=== PATIENT | female | born 1990 | race Hispanic/Latino ===

== ENCOUNTER 2018-01-30 16:45 | Emergency (ER) | payer SELFPAY ==
[~2018-01-30] VITALS: Ht 162.6 cm; Wt 61.4 kg
[2018-01-30 18:09] VITALS: BP 117/64
[2018-01-30] MEDS ORDERED: ULTRAM50 M1 PO (18:09)
[2018-01-30] MEDS ORDERED: AMOXICILLIN500 MG PO (18:09)
[2018-01-30] MEDS ORDERED: CLARITIN10 M1 PO (18:09)
== END 2018-01-30 18:15 | disposition home or self-care (01) | DRG 153 ==
LOC: ED 16:45
DX: J02.0 Streptococcal pharyngitis (principal)

== ENCOUNTER 2021-09-28 09:43 | Emergency (ER) | payer BC, MEDICAID ==
[~2021-09-28] VITALS: Ht 162.6 cm; Wt 72.7 kg
[~2021-09-28 09:43] MED LIST: AMOXICILLIN500 MG PO; CLARITIN10 M1 PO; ULTRAM50 M1 PO
[2021-09-28 09:54] VITALS: BP 103/75
[2021-09-28 10:00] VITALS: BP 107/80
[2021-09-28 10:30] VITALS: BP 103/71
[2021-09-28 11:00] VITALS: BP 119/75
[2021-09-28] MEDS ORDERED: KEFLEX500 MG PO (11:06)
[2021-09-28 11:11] VITALS: BP 119/75
== END 2021-09-28 11:18 | disposition home or self-care (01) | DRG 605 ==
LOC: ED 09:43
PROC: 0HQGXZZ Repair Left Hand Skin, External Approach (ICD-10-PCS; principal; 2021-09-28)
DX: S61.412A Laceration without foreign body of left hand, initial encounter (principal); W26.0XXA Contact with knife, initial encounter; Y93.89 Activity, other specified; Y92.009 Unspecified place in unspecified non-institutional (private) residence as the place of occurrence of the external cause

== ENCOUNTER 2022-03-10 01:06 | Emergency (ER) | payer BC, MEDICAID ==
[~2022-03-10] VITALS: Ht 162.6 cm; Wt 69.1 kg
[~2022-03-10 01:06] MED LIST changes: +KEFLEX500 MG PO
[2022-03-10 01:23] VITALS: BP 112/74
[2022-03-10] MEDS ORDERED: CLONAZEPAM1 MG PO (01:26)
[2022-03-10 01:42] VITALS: BP 113/69
[2022-03-10 01:47] LABS: URINE BILIRUBIN - DIPSTICK NEGATIVE (NEGATIVE); URINE BLOOD DIPSTICK NEGATIVE (NEGATIVE); URINE COLOR YELLOW; URINE GLUCOSE - DIPSTICK NEGATIVE (NEGATIVE); URINE KETONE NEGATIVE (NEGATIVE); URINE LEUK ESTERASE NEGATIVE (NEGATIVE); URINE PROTEIN - DIPSTICK NEGATIVE (NEG-TRACE); URINE SPECIFIC GRAVITY >=1.030; URINE UROBILINOGEN - DIPSTICK 0.2 E.U./dL (0.2)
[2022-03-10 01:49] LABS: URINE NITRITE - DIPSTICK NEGATIVE (Negative)
[2022-03-10 01:49] LABS: HEMATOCRIT 39.6 % (37.0-47.0); HEMOGLOBIN 13.3 g/dl (12.0-16.0); IMMATURE GRANULOCYTES 0.4 % (0.0-5.0); MEAN CORPUSCULAR HGB 29.9 pG CALC (26.0-32.0); MEAN CORPUSCULAR HGB CONC 33.6 g/dL CAL (32.0-36.0); NEUT# 7.86 thou/uL (2.00-7.15); RED BLOOD COUNT 4.45 mill/uL (4.20-5.60); RED CELL DISTRI WIDTH 11.9 % (11.5-15.5)
[2022-03-10 02:03] LABS: ALBUMIN 4.2 g/dL (3.2-5.0); ALKALINE PHOSPHATASE 79 u/l (38-126); ANION GAP 12 (6-22 (CALC)); BILIRUBIN, TOTAL 0.4 mg/dL (0.0-1.4); BUN 12 mg/dL (7-17); BUN/CREATININE RATIO 15 (12-20 (CALC)); CARBON DIOXIDE 27 mmol/l (22-30); CHLORIDE 105 mmol/l (95-108); CREATININE 0.8 mg/dL (0.5-1.0); GFR FOR AFR.AMER. > 60 ML/MIN (>=60 (CALC)); GFR OTHER RACES > 60 ML/MIN (>=60 (CALC)); LIPASE 111 u/l (23-300); POTASSIUM 3.9 mmol/l (3.5-5.1); SGOT/AST 25 u/l (14-36); SODIUM 141 mmol/l (137-146); TOTAL PROTEIN 7.7 g/dL (6.3-8.2)
[2022-03-10] MEDS ORDERED: PROMETHAZINE HY25 M1 PO (04:41)
[2022-03-10 04:45] VITALS: BP 113/69
== END 2022-03-10 03:55 | disposition home or self-care (01) | DRG 392 ==
LOC: ED 01:06
PROVIDERS: Family Medicine
DX: A08.4 Viral intestinal infection, unspecified (principal)

== ENCOUNTER 2022-05-29 13:34 | Emergency (ER) | payer MEDICAID ==
[~2022-05-29] VITALS: Ht 162.6 cm; Wt 68.0 kg
[~2022-05-29 13:34] MED LIST changes: +CLONAZEPAM1 MG PO; +PROMETHAZINE HY25 M1 PO
[2022-05-29 15:59] VITALS: BP 96/66
[2022-05-29 16:16] VITALS: BP 106/64
[2022-05-29 16:22] LABS: URINE BILIRUBIN - DIPSTICK NEGATIVE (NEGATIVE); URINE BLOOD DIPSTICK NEGATIVE (NEGATIVE); URINE COLOR YELLOW; URINE GLUCOSE - DIPSTICK NEGATIVE (NEGATIVE); URINE KETONE TRACE mg/dL (NEGATIVE); URINE LEUK ESTERASE NEGATIVE (NEGATIVE); URINE PROTEIN - DIPSTICK TRACE mg/dL (NEG-TRACE); URINE SPECIFIC GRAVITY >=1.030; URINE UROBILINOGEN - DIPSTICK 0.2 E.U./dL (0.2)
[2022-05-29 16:23] LABS: URINE NITRITE - DIPSTICK NEGATIVE (Negative)
[2022-05-29 16:30] VITALS: BP 93/63
[2022-05-29] MEDS ORDERED: ORPHENADRINE100 MG PO (17:52)
[2022-05-29 18:02] VITALS: BP 93/63
== END 2022-05-29 18:02 | disposition home or self-care (01) ==
LOC: ED 13:34
PROVIDERS: Physician Assistant Surgical
DX: M54.50 Low back pain, unspecified (principal)

== ENCOUNTER 2022-09-11 13:20 | Emergency (ER) | payer OTHER, MEDICAID ==
[~2022-09-11] VITALS: Ht 162.6 cm; Wt 61.0 kg
[~2022-09-11 13:20] MED LIST changes: +ORPHENADRINE100 MG PO
[2022-09-11 16:42] VITALS: BP 116/71
[2022-09-11] MEDS ORDERED: IBUPROFEN600 MG PO (16:44)
[2022-09-11] MEDS ORDERED: CYCLOBENZAPRINE10 MG PO (16:44)
== END 2022-09-11 17:02 | disposition home or self-care (01) | DRG 552 ==
LOC: ED 13:20
DX: M54.2 Cervicalgia (principal); M25.512 Pain in left shoulder; F17.200 Nicotine dependence, unspecified, uncomplicated; V49.40XA Driver injured in collision with unspecified motor vehicles in traffic accident, initial encounter